=== PATIENT | male | born 1995 | race African-American/Black ===

== ENCOUNTER 2018-01-25 10:52 | Day surgery (SDC) | payer OTHER ==
[2018-01-25] MEDS ORDERED: CEFAZOLIN 1 GM VIAL ONE (11:08)
[2018-01-25] MEDS ORDERED: CEFAZOLIN/Water 2 GM/20 ML SYRINGE ONE (11:08)
[2018-01-25] MEDS ORDERED: Bupivacaine PF 0.5% 30 ML VIAL ONE (11:23)
[2018-01-25] MEDS ORDERED: Sodium Chloride 0.9% 0 ML ONE (11:23)
[2018-01-25] MEDS ORDERED: Bacitracin Zinc Ointment 30 gm TUBE ONE (11:23)
[2018-01-25 11:25] LABS: #Basophils 0.1 thou/uL (0.0-0.2); #Eosinphils 0.1 thou/uL (0.0-0.7); #Lymphocytes 1.4 thou/uL (1.20-3.40); #Monocytes 0.5 thou/uL (0.11-0.59); #Neutrophils 1.7 thou/uL (1.40-6.50); %Basophils 1.5 % (0.0-1.0); %Eosinophils 3.2 % (0.0-10.0); %Lymphocytes 38.3 % (28.0-48.0); %Monocytes 12.5 % (0.0-4.0); %Neutrophils 44.5 % (31.0-61.0); Hemoglobin 15.6 g/dL (14.0-18.0); Mean Corpuscular HGB CONC 33.3 g/dL (32.0-36.0); Mean Corpuscular Hemoglobin 29.1 pg (25.0-35.0); Mean Corpuscular Volume 87.4 fL (78.0-98.0); Mean Platelet Volume 8.2 fL (7.4-10.4); Platelet Count 193 thou/uL (130-400); Red Blood Cell (RBC) Count 5.36 mill/uL (4.00-5.20); White Blood Cell (WBC) Count 3.7 thou/uL (4.8-10.8)
[2018-01-25] MEDS ORDERED: Fentanyl 100 MCG/2 ML VIAL ONE (11:27)
[2018-01-25] MEDS ORDERED: Midazolam HCl 2 mg/2 ml Vial ONE (11:27)
[2018-01-25 11:52] LABS: Anion Gap 10 mmol/L (10-20); BUN (Urea Nitrogen) 12 mg/dL (8.9-20.6); Calc. Creatinine Clearance 0 mL/min (70-130); Calcium 9.9 mg/dL (7.8-10.44); Carbon Dioxide 26 mmol/L (22-29); Chloride 107 mmol/L (98-107); Estimated GFR-MDRD 84; Glucose 103 mg/dL (70-105); Potassium 3.8 mmol/L (3.5-5.1); Sodium 139 mmol/L (136-145)
[2018-01-25] MEDS ORDERED: Ondansetron HCl/PF 4 MG/2 ML Vial ONE (13:00)
[2018-01-25] MEDS ORDERED: Ketorolac Tromethamine 30 MG/ML VIAL ONE ×2 (13:00→14:36)
[2018-01-25] MEDS ORDERED: PROPOFOL 200 MG/20 ML VIAL ONE (13:00)
--- NOTE | 2018-01-25 14:03 | RAD ---
RIGHT HAND INTRAOPERATIVE FLUOROSCOPY THREE VIEWS: History: Fracture. FINDINGS/IMPRESSION: Intraoperative fluoroscopy was provided for internal fixation as performed by Dr. Aponte. Three spo t fluoroscopic images show operative hardware overlying the dorsum of the hands. Long wire transfixes the fourth carpal metacarpal joint in anatomic alignment. POS: [facility]
[2018-01-25] MEDS ORDERED: HYDROcodone/Acetaminophen 5/325 mg Tablet ONE (15:40)
--- NOTE | 2018-01-31 00:25 | OP ---
DATE OF SURGERY: 01/25/2018 PREOPERATIVE DIAGNOSIS: Right ring finger carpometacarpal joint dislocation. POSTOPERATIVE DIAGNOSIS: Subluxation about 50%, dorsally, the ring finger metacarpal on the hamate p ortion of the carpometacarpal joint ring finger. PROCEDURES PERFORMED: Open reduction and internal fixation and pinning for stabilization of this helga nt through C-arm supervision of this joint, and applied short-arm splint. SPECIMEN: None. TOURNIQUET TIME: 18 minutes. ESTIMATED BLOOD LOSS: 5 mL. INDICATIONS: The patient had had an injury with a possible avulsion fracture, but the fracture appea rs to be healed and now has 2-1/2-week-old ring finger metacarpal fracture, could not be reduced with close means in the clinic. DESCRIPTION OF PROCEDURE: After successful general LMA technique by [facility], the limb wa s prepped and draped. Timeout was done and the procedure planned, documented, and consented was the same. He was prepped and draped. We attempted a closed reduction, but the dislocation, did not move . Then, we did a zigzag incision of 2 cm exposed the joint, made a small T-shaped opening of the helga nt and visualized the joint. We irrigated, cleaned out the volar aspect where there was some consoli dated hematoma and then performed a closed reduction using 2 planes of pressure. We held the pressur e, placed a K-wire proximal to metacarpal across the joint to the hamate on the fourth metacarpal jo-ann e. Radiographically and clinically, the fracture was 100% stable. There was no fifth carpometacarpa l joint abnormality and no third seen. We released the tourniquet, obtained hemostasis. Final C-arm pictures confirmed the reduction to be in excellent and anatomic, and the K-wire was in good position in both planes on both sides of the marcio int. We cut the K-wire with 2 to 3 mm protruding for later removal, released the tourniquet, obtaine d hemostasis. We closed the capsule with a 2-0 Vicryl in multiple [id number] interrupted suture s. We closed the subcutaneous with interrupted 4-0 Monocryl and the skin with a 4-0 nylon. The gail ent was injected with 20 mL of 0.5% Marcaine, bulky dressing applied along with a short-arm splint. He left the operating room without complication with pink digits.
== END 2018-01-25 16:43 | disposition home or self-care (01) ==
LOC: SDC 10:52
PROVIDERS: ATTEND Orthopaedic Surgery Hand Surgery
PROC: 0PSP04Z Reposition Right Metacarpal with Internal Fixation Device, Open Approach (ICD-10-PCS; principal; 2018-01-25)
DX: S62.314A Displaced fracture of base of fourth metacarpal bone, right hand, initial encounter for closed fracture (principal); F90.2 Attention-deficit hyperactivity disorder, combined type; Z79.899 Other long term (current) drug therapy; W22.8XXA Striking against or struck by other objects, initial encounter
CPT/HCPCS: 76000; 80048; 85025; 96372; A4216; J0690; J1885; J2250; J2405; J2704; J3010; J3490; S0020

== ENCOUNTER 2020-10-02 12:30 | Emergency (ER) | payer BC, SELFPAY ==
[2020-10-02] MEDS ORDERED: Ketorolac Tromethamine 30 MG/ML VIAL ONE (15:38)
[2020-10-02] MEDS ORDERED: Lidocaine 1% (PF) 30 ML VIAL ONE (18:33)
[2020-10-02] MEDS ORDERED: Boostrix 0.5 ML (Tdap) VIAL ONE (19:38)
[2020-10-03 13:11] LABS: SARS-CoV-2 PCR by NAA Not Detected (NotDetected)
== END 2020-10-02 20:00 | disposition home or self-care (01) ==
LOC: ERS 12:30
DX: T84.210A Breakdown (mechanical) of internal fixation device of bones of hand and fingers, initial encounter (principal)
CPT/HCPCS: 87635; 90471; 90715; 96372; J1885; J2001; U0003; U0005

== ENCOUNTER 2020-10-04 05:46 | Day surgery (SDC) | payer BC ==
[2020-10-03 14:38] VITALS: BMI 22.4
[2020-10-04] MEDS ORDERED: Bupivacaine PF 0.5% 30 ML VIAL ONE (06:46)
[2020-10-04] MEDS ORDERED: Sodium Chloride 0.9% 10 ML ONE (06:46)
[2020-10-04] MEDS ORDERED: Bacitracin Zinc Ointment 30 gm TUBE ONE (06:46)
[2020-10-04] MEDS ORDERED: Fentanyl 100 MCG/2 ML VIAL ONE (06:55)
[2020-10-04] MEDS ORDERED: Dexmedetomidine 200 MCG/2 ML VIAL ONE (06:55)
[2020-10-04] MEDS ORDERED: Ketorolac Tromethamine 30 MG/ML VIAL ONE (07:19)
[2020-10-04] MEDS ORDERED: Lidocaine 1% PF 5 ML VIAL ONE (07:19)
[2020-10-04] MEDS ORDERED: Ondansetron PF 4 MG/2 ML Vial ONE (07:19)
[2020-10-04] MEDS ORDERED: PROPOFOL 200 MG/20 ML VIAL ONE (07:19)
[2020-10-04] MEDS ORDERED: Dexamethasone 20 MG/5 ML VIAL ONE (07:19)
== END 2020-10-04 10:29 | disposition home or self-care (01) ==
LOC: SDC 05:46
PROVIDERS: ATTEND Orthopaedic Surgery Hand Surgery
PROC: 0LPX0JZ Removal of Synthetic Substitute from Upper Tendon, Open Approach (ICD-10-PCS; principal; 2020-10-04)
DX: T84.84XA Pain due to internal orthopedic prosthetic devices, implants and grafts, initial encounter (principal); M71.141 Other infective bursitis, right hand
CPT/HCPCS: 76000; J0690; J1100; J1885; J2405; J2704; J3010; J3490; S0020

== ENCOUNTER 2025-02-02 10:11 | Outpatient (CLI) | payer OTHER | END 2025-02-02 10:12 | disposition home or self-care (01) | LOC: SCSMRI 10:11 | PROVIDERS: ATTEND Orthopaedic Surgery | DX: M23.92 Unspecified internal derangement of left knee (principal); S83.242A Other tear of medial meniscus, current injury, left knee, initial encounter; M94.8X6 Other specified disorders of cartilage, lower leg; M25.762 Osteophyte, left knee ==

== ENCOUNTER 2025-03-30 08:18 | Day surgery (SDC) | payer OTHER ==
[2025-03-29 12:05] VITALS: BMI 29.9
[2025-03-30 09:41] LABS: #Basophils Less than 0.03 10x3/uL (0.0-0.2); #Eosinophils 0.11 10x3/uL (0.0-0.7); #Monocytes 0.42 10x3/uL (0.11-0.59); #Neutrophils 1.63 10x3/uL (1.40-6.50); %Basophils 0.3 % (0.0-1.0); %Eosinophils 3.0 % (0.0-10.0); %Lymphocytes 40.9 % (21.0-51.0); %Monocytes 11.3 % (0.0-10.0); %Neutrophils 43.7 % (42.0-75.0); Hematocrit 44.5 % (42.0-52.0); Hemoglobin 14.2 g/dL (14.0-18.0); Mean Corpuscular Hemoglobin 27.7 pg (27.0-31.0); Mean Corpuscular Volume 86.9 fL (78.0-98.0); Platelet Count 199 10x3/uL (130-400); Red Blood Cell (RBC) Count 5.12 mill/uL (4.70-6.10); White Blood Cell (WBC) Count 3.72 10x3/uL (4.8-10.8)
[2025-03-30] MEDS ORDERED: CEFAZOLIN 2 GM VIAL ONE (09:46)
[2025-03-30] MEDS ORDERED: PROPOFOL 20 ML ONE ×2 (10:15→10:16)
[2025-03-30] MEDS ORDERED: Lidocaine 1% PF 5 ML VIAL ONE (10:16)
[2025-03-30] MEDS ORDERED: Ondansetron PF 4 MG/2 ML Vial ONE (10:42)
== END 2025-03-30 14:59 | disposition home or self-care (01) ==
LOC: SDC 08:18
PROVIDERS: ATTEND Orthopaedic Surgery
PROC: 3E0T3BZ Introduction of Anesthetic Agent into Peripheral Nerves and Plexi, Percutaneous Approach (ICD-10-PCS; principal; 2025-03-30)
PROC: 0SCD4ZZ Extirpation of Matter from Left Knee Joint, Percutaneous Endoscopic Approach (ICD-10-PCS; 2025-03-30)
DX: M23.42 Loose body in knee, left knee (principal); Z90.89 Acquired absence of other organs
CPT/HCPCS: 85025; J0166; J0665; J1100; J2704

== ENCOUNTER 2025-04-02 16:35 | Emergency (ER) | payer OTHER | END 2025-04-02 19:44 | LOC: ERS 16:35 | DX: M79.662 Pain in left lower leg (principal) ==